=== PATIENT | male | born 1950 | race Caucasian/White ===

== ENCOUNTER 2016-12-27 08:01 | Outpatient (CLI) ==
[2016-12-27 13:53] LABS: BILIRUBIN,URINE Negative (NEGATIVE); KETONES,URINE Negative (NEGATIVE); LEUKOCYTE ESTERASE ,URINE Negative (NEGATIVE); NITRITE,URINE Negative (NEGATIVE); PROTEIN,URINE Negative (NEGATIVE); URINE, BLOOD Negative (NEGATIVE)
[2016-12-27 13:57] LABS: ADD URINE MICROSCOPIC NO
[2016-12-27 13:59] LABS: ALBUMIN 3.4 g/dL (3.4-5.0); ALBUMIN/GLOBULIN RATIO 0.89; ANION GAP 12.3; BILIRUBIN,TOTAL 0.86 mg/dL (0.00-1.20); BUN/CREATININE RATIO 17.72; CALCIUM 9.1 mg/dL (8.2-10.2); CHOL/HDL RATIO 4.3 (4.5-6.4); CREATININE 0.79 mg/dL (0.60-1.10); POTASSIUM 4.3 mmol/L (3.5-5.1); TOTAL PROTEIN 7.2 g/dL (5.8-8.1)
[2016-12-27 14:01] LABS: BASOPHILS % (AUTO) 0.3 % (0.0-3.0); EOSINOPHILS # (AUTO) 0.1 K/ul (0.0-0.7); EOSINOPHILS % (AUTO) 2.1 % (0.0-7.0); HEMATOCRIT 38.2 % (42.0-52.0); HEMOGLOBIN 12.5 g/dl (14.0-18.0); IMMATURE GRANULOCYTE % (AUTO) 0.3 % (0.0-5.0); LYMPHOCYTES # (AUTO) 2.2 K/uL (0.60-3.4); LYMPHOCYTES % (AUTO) 38.3 (10.0-50.0); MEAN CORPUSCULAR HEMOGLOBIN 31.6 pg (27.0-31.0); MEAN CORPUSCULAR HGB CONC 32.7 (31.8-35.4); MEAN CORPUSCULAR VOLUME 96.7 fl (80.0-94.0); MONOCYTES # (AUTO) 0.6 K/uL (0.4-2.0); MONOCYTES % (AUTO) 9.9 (0-10); NEUTROPHILS # (AUTO) 2.8 K/ul (2.0-6.9); NEUTROPHILS % (AUTO) 49.1; PLATELET COUNT 244 10^3/uL (140-440); RED BLOOD COUNT 3.95 10^6/ul (4.70-6.10); WHITE BLOOD COUNT 5.74 K/ul (4.2-10.2)
== END 2016-12-27 08:02 | disposition home or self-care (01) ==
LOC: LAB 08:01
PROVIDERS: ATTEND General Practice
DX: D51.9 Vitamin B12 deficiency anemia, unspecified (principal); K86.9 Disease of pancreas, unspecified; Z79.899 Other long term (current) drug therapy
CPT/HCPCS: 36415; 80053; 80061; 81001; 85025

== ENCOUNTER 2017-04-25 07:57 | Outpatient (CLI) | payer OTHER ==
[2017-04-25 08:52] LABS: CREATININE 0.82 mg/dL (0.60-1.10)
--- NOTE | 2017-04-25 10:28 | CT ---
EXAM: CT of the abdomen with contrast History: Follow-up pancreatic cyst. Comparison: CT abdomen pelvis 03/11/2016, CT abdomen pelvis 06/25/2015 Technique: Multiplanar CT images through the abdomen were obtained following administration of IV c ontrast Findings: Lung bases are free of consolidation. No acute osseous abnormalities. No discrete gallstones identified by CT. No focal liver or splenic lesions. Adrenal glands are unr emarkable. Stable small benign cyst within the pancreatic head. No suspicious pancreatic lesions. No change in the benign left renal cysts. No enhancing renal masses. No dilated loops of bowel. No free air. No ascites. No lymphadenopathy. 2 mm right renal calculus. Impression: 1. Stable small benign pancreatic cyst. No additional follow-up is needed. 2. Stable benign left renal cysts.
== END 2017-04-25 07:58 | disposition home or self-care (01) ==
LOC: RAD 07:57
PROVIDERS: ATTEND Internal Medicine Gastroenterology
DX: K86.2 Cyst of pancreas (principal)
CPT/HCPCS: 36415; 82565

== ENCOUNTER 2017-05-03 13:50 | Outpatient (CLI) ==
[2017-05-03 14:01] LABS: BASOPHILS % (AUTO) 0.8 % (0.0-3.0); EOSINOPHILS # (AUTO) 0.1 K/ul (0.0-0.7); EOSINOPHILS % (AUTO) 2.6 % (0.0-7.0); HEMATOCRIT 39.9 % (42.0-52.0); HEMOGLOBIN 13.6 g/dl (14.0-18.0); LYMPHOCYTES # (AUTO) 1.9 K/uL (0.60-3.4); LYMPHOCYTES % (AUTO) 37.8 (10.0-50.0); MEAN CORPUSCULAR HEMOGLOBIN 32.2 pg (27.0-31.0); MEAN CORPUSCULAR HGB CONC 34.1 (31.8-35.4); MEAN CORPUSCULAR VOLUME 94.5 fl (80.0-94.0); MONOCYTES # (AUTO) 0.4 K/uL (0.4-2.0); MONOCYTES % (AUTO) 8.5 (0-10); NEUTROPHILS # (AUTO) 2.5 K/ul (2.0-6.9); NEUTROPHILS % (AUTO) 50.3; PLATELET COUNT 235 10^3/uL (140-440); RED BLOOD COUNT 4.22 10^6/ul (4.70-6.10); WHITE BLOOD COUNT 4.92 K/ul (4.2-10.2)
[2017-05-03 14:11] LABS: BILIRUBIN,URINE Negative (NEGATIVE); KETONES,URINE Negative (NEGATIVE); LEUKOCYTE ESTERASE ,URINE Negative (NEGATIVE); NITRITE,URINE Negative (NEGATIVE); PH,URINE 6.5 (5-9); PROTEIN,URINE Negative (NEGATIVE); URINE, BLOOD Negative (NEGATIVE)
[2017-05-03 14:15] LABS: ALBUMIN 3.6 g/dL (3.4-5.0); ALBUMIN/GLOBULIN RATIO 1.06; ANION GAP 12.1; BILIRUBIN,TOTAL 1.16 mg/dL (0.00-1.20); BUN/CREATININE RATIO 16.86; CALCIUM 9.2 mg/dL (8.2-10.2); CHOL/HDL RATIO 4.4 (4.5-6.4); CREATININE 0.83 mg/dL (0.60-1.10); POTASSIUM 4.1 mmol/L (3.5-5.1)
[2017-05-03 14:23] LABS: ADD URINE MICROSCOPIC NO
== END 2017-05-03 13:51 | disposition home or self-care (01) ==
LOC: LAB 13:50
PROVIDERS: ATTEND General Practice
DX: D64.9 Anemia, unspecified (principal); E11.9 Type 2 diabetes mellitus without complications; I10 Essential (primary) hypertension; Z79.899 Other long term (current) drug therapy
CPT/HCPCS: 36415; 80053; 80061; 81001; 85025

== ENCOUNTER 2017-09-06 12:52 | Outpatient (CLI) | END 2017-09-06 12:53 | disposition home or self-care (01) | LOC: LAB 12:52 | PROVIDERS: ATTEND General Practice | DX: E11.9 Type 2 diabetes mellitus without complications (principal); I10 Essential (primary) hypertension; Z79.899 Other long term (current) drug therapy | CPT/HCPCS: 36415; 80053; 80061; 81001; 83036; 85025 ==

== ENCOUNTER 2018-01-08 11:20 | Outpatient (CLI) | END 2018-01-08 11:21 | disposition home or self-care (01) | LOC: FCC-LAB 11:20 | PROVIDERS: ATTEND General Practice | DX: E11.9 Type 2 diabetes mellitus without complications (principal); I10 Essential (primary) hypertension; D64.9 Anemia, unspecified; Z79.899 Other long term (current) drug therapy | CPT/HCPCS: 36415; 80053; 80061; 81001; 83037; 85025 ==

== ENCOUNTER 2018-05-10 11:23 | Outpatient (CLI) | END 2018-05-10 11:24 | disposition home or self-care (01) | LOC: LAB 11:23 | PROVIDERS: ATTEND Internal Medicine Gastroenterology | DX: D49.0 Neoplasm of unspecified behavior of digestive system (principal) | CPT/HCPCS: 36415; 82565 ==

== ENCOUNTER 2018-05-11 08:49 | Outpatient (CLI) | payer OTHER ==
--- NOTE | 2018-05-11 11:42 | CT ---
EXAM: CT abdomen pelvis with and without contrast per pancreatic mass protocol HISTORY: Intraductal papillary mucinous neoplasm COMPARISON: CT abdomen pelvis 04/25/2017 and numerous priors TECHNIQUE: Serial axial images of the abdomen were performed before and after 75 mL is of Omnipaque IV contrast was administered. These were viewed and arterial, venous and delayed phases. These wer e obtained from the lung bases through the superior pelvis. FINDINGS: The lung bases demonstrate minimal right lung fibrosis. Noncontrast evaluation of the pancreas demonstrates a round low attenuation lesion in the uncinate pr ocess measuring 1.2 cm in diameter. Contrast enhanced images demonstrate no enhancement. Delayed ph ase imaging demonstrates no soft tissue nodule or abnormality. The liver is unremarkable. The gallbladder is unremarkable. The adrenal glands are unremarkable. T he right kidney demonstrates a 0.2 cm nonobstructing stone. The left kidney demonstrates a low atten uation cyst measuring 1.2 cm. The spleen is unremarkable. Stomach is distended. The small bowel in the abdomen pelvis is normal. The appendix is normal. The limited views of the c olon are normal. The osseous structures demonstrate degenerative disease of the spine. IMPRESSION: 1. No change in round low attenuation lesion in the pancreatic head/uncinate process consistent with known IPMN. 2. Left renal cyst and nonobstructing right renal stones.
== END 2018-05-11 08:50 | disposition home or self-care (01) ==
LOC: RAD 08:49
PROVIDERS: ATTEND Internal Medicine Gastroenterology
DX: D49.0 Neoplasm of unspecified behavior of digestive system (principal)

== ENCOUNTER 2018-05-14 08:19 | Outpatient (CLI) | END 2018-05-14 08:20 | disposition home or self-care (01) | LOC: LAB 08:19 | PROVIDERS: ATTEND General Practice | DX: D64.9 Anemia, unspecified (principal); K86.9 Disease of pancreas, unspecified; E11.9 Type 2 diabetes mellitus without complications; R10.31 Right lower quadrant pain | CPT/HCPCS: 36415; 80053; 80061; 81001; 83036; 85025 ==

== ENCOUNTER 2018-07-16 11:11 | Outpatient (CLI) | payer OTHER ==
--- NOTE | 2018-07-16 13:22 | DI ---
EXAM: Three views of the thoracic spine. History: Thoracic back pain. Findings: No acute fracture or subluxation of the thoracic spine. Mild to moderate multilevel disc space narrowing. Flowing anterior osteophytes seen at most levels. Partially visualized degenerative disc disease within the cervical spine with prominent osteophytes. Impression: 1. No acute osseous abnormality of the thoracic spine. 2. Mild to moderate degenerative disc disease. 3. Diffuse idiopathic skeletal hyperostosis
--- NOTE | 2018-07-16 13:23 | DI ---
EXAM: Two views of the chest. History: Cough. Comparison: Chest radiograph 02/15/2010 Findings: Heart size is normal. No focal consolidation. No appreciable pleural fluid and no pneumo thorax. No acute osseous abnormalities. Impression: No acute cardiopulmonary process
== END 2018-07-16 11:12 | disposition home or self-care (01) ==
LOC: LAB 11:11
PROVIDERS: ATTEND General Practice
DX: R05 Cough (principal); R07.9 Chest pain, unspecified; R09.89 Other specified symptoms and signs involving the circulatory and respiratory systems; J02.9 Acute pharyngitis, unspecified; Z79.899 Other long term (current) drug therapy
CPT/HCPCS: 36415; 80053; 80061; 81001; 83036; 85025; 87502; 87651

== ENCOUNTER 2018-07-17 10:56 | Outpatient (CLI) | payer OTHER ==
--- NOTE | 2018-07-17 14:11 | CT ---
Exam: CT pulmonary angiography. HISTORY: Chest pain.. COMPARISON: None. CONTRAST: 125 ml of Omnipaque 350 TECHNIQUE: Contiguous axial images at 3 mm intervals were obtained from the base of the lungs to the upper chest. IV contrast was given. 3D volume rendered images were also reviewed and saved to PACS . Coronaland saggital MPR reformats and coronal oblique MIP reformats were reviewed. FINDINGS: The pulmonary arteries are well opacified. There are no filling defects to suggest acute pulmonary embolus. Aorta is also well opacified. There is no aneurysm or dissection. The great vessels are within normal limits. The heart size is within normal limits. No mediastinal or hilar adenopathy is noted. The lungs are clear without consolidation or effusion. Emphysematous changes and subpleural blebs ar e seen, right greater left. There are no suspicious pulmonary nodules. Airways are widely patent. Pulmonary interstitium appears normal. There is no pleural thickening or pleural effusion. Limited views of the upper abdomen are unremarkable. Anterior flowing osteophytes is seen at all lev els of the thoracic spine. IMPRESSION: 1. No CT evidence of acute pulmonary embolus or aortic dissection. 2. No acute pulmonary disease. 3. Emphysematous changes.
== END 2018-07-17 10:57 | disposition home or self-care (01) ==
LOC: RAD 10:56
PROVIDERS: ATTEND General Practice
DX: R07.9 Chest pain, unspecified (principal)

== ENCOUNTER 2018-09-06 08:01 | Outpatient (CLI) | payer OTHER | END 2018-09-06 08:02 | disposition home or self-care (01) | LOC: RHC-LAB 08:01 | PROVIDERS: ATTEND General Practice | DX: D64.9 Anemia, unspecified (principal); I10 Essential (primary) hypertension; E11.9 Type 2 diabetes mellitus without complications; Z79.899 Other long term (current) drug therapy | CPT/HCPCS: 36415; 80053; 80061; 81001; 83036; 85025 ==

== ENCOUNTER 2018-12-04 07:28 | Outpatient (CLI) | END 2018-12-04 07:29 | disposition home or self-care (01) | LOC: LAB 07:28 | PROVIDERS: ATTEND General Practice | DX: E11.9 Type 2 diabetes mellitus without complications (principal); I10 Essential (primary) hypertension; D64.9 Anemia, unspecified; K86.9 Disease of pancreas, unspecified; Z79.899 Other long term (current) drug therapy | CPT/HCPCS: 36415; 80053; 80061; 81001; 83036; 85007; 85025 ==